=== PATIENT | male | born 1985 | race Caucasian/White ===

== ENCOUNTER 2016-08-20 16:51 | Emergency (ER) | payer BC ==
[2016-08-20 17:03] VITALS: BP 161/95; O2SAT 98
--- NOTE | 2016-08-20 17:27 | ERPHSYRPT ---
- History of Present Illness Time Seen by Provider: 08/20/16 17:10 Source: patient Exam Limitations: clinical condition Patient Subjective Stated Complaint: PT THINKS CONTRACTED AN STD, DRAINAGE TO PENIS YELLOW, NO PAIN OR FEVER Triage Nursing Assessment: PT ALERT AND IN NO DISTRESS, RESP EASY, SKIN W/D Physician History: PATIENT COMPLAINS OF DYSURIA ASSOCIATED WITH YELLOW URETHRAL DISCHARGE. DENIES FLANK PAIN, FEVER, HEMATURIA. Timing/Duration: today Activites at Onset: none Onset Location: urethral Severity of Pain-Max: mild Severity of Pain-Current: mild Prior abdominal problems: none Sexual intercourse history: unprotected intercourse Allergies/Adverse Reactions: No Known Drug Allergies Allergy (Unverified 08/20/16 17:03) Hx Tetanus, Diphtheria Vaccination/Date Given: Yes Hx Influenza Vaccination/Date Given: No Immunizations Up to Date: Yes - Past Medical History Pertinent Past Medical History: No - Past Surgical History Past Surgical History: No - Social History Smoking Status: Never smoker Exposure to second hand smoke: No Drug Use: none Patient Lives Alone: No - Review of Systems Constitutional: No Fever, No Chills Eyes: No Symptoms Ears, Nose, & Throat: No Symptoms Respiratory: No Cough, No Dyspnea Cardiac: No Chest Pain, No Edema, No Syncope Abdominal/Gastrointestinal: No Abdominal Pain, No Nausea, No Vomiting, No Diarrhea Genitourinary Symptoms: Dysuria, Penile Discharge Musculoskeletal: No Symptoms, No Back Pain, No Neck Pain Skin: No Symptoms, No Rash Neurological: No Symptoms, No Dizziness, No Focal Weakness, No Sensory Changes Psychological: No Symptoms Endocrine: No Symptoms All Other Systems: Reviewed and Negative - Nursing Vital Signs Nursing Vital Signs: Initial Vital Signs Temperature 98.4 F Temperature Source Oral Pulse Rate 70 Respiratory Rate 16 Blood Pressure [Right Arm] 161/95 Pain Intensity 0 - Physical Exam General Appearance: no apparent distress, alert Eye Exam: PERRL/EOMI Ears, Nose, Throat Exam: pharynx normal, moist mucous membranes Neck Exam: normal inspection, supple Respiratory Exam: normal breath sounds, lungs clear Cardiovascular Exam: regular rate/rhythm, No edema Gastrointestinal/Abdomen Exam: soft, normal bowel sounds, No tenderness Male Genital Exam: normal genitalia, circumcised Back Exam: normal inspection, No CVA tenderness Extremity Exam: normal inspection, normal range of motion, No pedal edema Neurologic Exam: alert, oriented x 3, cooperative, sensation nml, No motor deficits Skin Exam: normal color, warm, dry, No rash SpO2: 98 Oxygen Delivery: Room Air Ordered Tests: Active Orders 24 hr Category Date Time Status UA Stat Lab 08/20/16 18:31 Ordered Wet Prep Stat Lab 08/20/16 17:45 Completed Medication Summary Discontinued Medications Generic Name Dose Route Start Last Admin Trade Name Gideon PRN Reason Stop Dose Admin Ceftriaxone Sodium 250 mg 08/20/16 17:41 08/20/16 17:50 Rocephin 250 Mg Inj IM 08/20/16 17:42 250 mg STAT ONE Administration Ceftriaxone Sodium Confirm 08/20/16 17:48 Rocephin 500 Mg Inj Administered 08/20/16 17:49 Dose 500 mg .ROUTE .STK-MED ONE Lidocaine HCl Confirm 08/20/16 17:49 Xylocaine 1% Hcl 20 Ml Mdv Administered 08/20/16 17:50 Dose 1 ml .ROUTE .STK-MED ONE Lab/Rad Data: Laboratory Results 08/20/16 Range/Units 17:45 WBC (Wet Prep) Rare RBC (Wet Prep) Rare Epi Cells (Wet Prep) None Seen Bacteria (Wet Prep) None Seen Clue Cells (Wet Prep) None Seen Trichomonas (Wet Prep) None Seen Budding Yeast (Wet Prp) None Seen - Progress Progress Note: 08/20/16 17:47 PATIENT GIVEN ROCEPHIN 250MG IM, URINE GC AND CHLAMYDIA OBTAINED, ALONG WITH TRICHOMONAS Counseled pt/family regarding: lab results, diagnosis, need for follow-up - Departure Time of Disposition: 18:45 Departure Disposition: Home Clinical Impression: ACUTE URETHRITIS Condition: Stable Critical Care Time: No Referrals: DOCTOR,NO FAMILY [Primary Care Provider] - Instructions: Chlamydia Additional Instructions: FLAGYL 500MG, 2 TABLETS TWICE DAILY. ANTIBIOTIC DOXYCYCLINE 100MG TWICE DAILY FOR 10 DAYS. FOLLOWUP WITH THE HEALTH [facility]PART[facility] FOR HIV TESTING. Prescriptions: Doxycycline Hyclate 100 mg [Vibramycin 100 MG] 100 mg PO BID #0 tab Metronidazole 500 mg [Flagyl 500 MG] 2 tablet PO BID #4 tablet
[2016-08-20] MEDS ORDERED: ROCEPHIN 250 MG INJ IM ONE (17:41)
[2016-08-20] MEDS ORDERED: Rocephin 500 MG INJ ONE (17:48)
[2016-08-20] MEDS ORDERED: XYLOCAINE 1% HCL 20 ML MDV ONE (17:49)
[2016-08-20 18:00] LABS: Bacteria None Seen; Clue Cells None Seen; Trichomonas None Seen; Yeast None Seen
[2016-08-20 18:45] VITALS: PULSE 70
[2016-08-20 18:58] LABS: COMPLETE URINE MICROSCOPIC? NO; Collection Type CCMS; Ph 7.5 (5-6)
[2016-08-20 19:39] LABS: CHLAMYDIA URINE NEGATIVE; GC URINE NEGATIVE
== END 2016-08-20 18:45 | disposition home or self-care (01) ==
LOC: ED 16:51
DX: N34.2 Other urethritis (principal); R30.0 Dysuria
CPT/HCPCS: 81002; 87210; 87491; 87591; 96372; 99283; J0696